=== PATIENT | male | born 1990 | race Caucasian/White ===

== ENCOUNTER 2017-10-27 14:52 | Emergency (ER) | payer SELFPAY ==
[2017-10-27 15:02] VITALS: BP 125/72
--- NOTE | 2017-10-27 15:59 | ER Document Report ---
ED GI/ - General Chief Complaint: Nausea/Vomiting Stated Complaint: VOMITING Time Seen by Provider: 10/27/17 15:55 Mode of Arrival: Ambulatory Information source: Patient Notes: Chief complaint: Vomiting History of complain:( obtained from----patient) 27 years old male yesterday had a feverish feeling and vomited a few times., Went back to work today they needed a note from the doctor. Therefore presented to the ED Currently has no nausea vomiting fever chills or other constitutional symptoms denies any diarrhea dysuria frequency urgency. Onset: As above Duration: Yesterday Severity: Mild Quality: None Context: As above Exacerbating factor and relieving factors: As above REVIEW OF SYSTEMS: CONSTITUTIONAL : Denies fever, chills, or sweats. Denies recent illness. EENT: Denies eye, ear, throat, or mouth pain or symptoms. Denies nasal or sinus congestion or discharge. Denies throat, tongue, or mouth swelling or difficulty swallowing. CARDIOVASCULAR: Denies chest pain. Denies palpitations or racing or irregular heart beat. Denies ankle edema. RESPIRATORY: Denies cough, cold, or chest congestion. Denies shortness of breath, difficulty breathing, or wheezing. GASTROINTESTINAL: Denies distention. Denies nausea, vomiting, or diarrhea. Denies blood in vomitus, stools, or per rectum. Denies black, tarry stools. Denies constipation. GENITOURINARY: Denies difficulty urinating, painful urination, burning, frequency, blood in urine, or discharge. FEMALE GENITOURINARY: Denies vaginal bleeding, heavy or abnormal periods, irregular periods. Denies vaginal discharge or odor. MUSCULOSKELETAL: Denies back or neck pain or stiffness. Denies joint pain or swelling. SKIN: Denies rash, lesions or sores. HEMATOLOGIC : Denies easy bruising or bleeding. LYMPHATIC: Denies swollen, enlarged glands. NEUROLOGICAL: Denies confusion or altered mental status. Denies passing out or loss of consciousness. Denies dizziness or lightheadedness. Denies headache. Denies weakness or paralysis or loss of use of either side. Denies problems with gait or speech. Denies sensory loss, numbness, or tingling. Denies seizures. PSYCHIATRIC: Denies anxiety or stress. Denies depression, suicidal ideation, or homicidal ideation. ALL OTHER SYSTEMS REVIEWED AND NEGATIVE. PHYSICAL EXAMINATION: GENERAL: Well-appearing, well-nourished and in no acute distress. HEAD: Atraumatic, normocephalic. EYES: Pupils equal round and reactive to light, extraocular movements intact, conjunctiva are normal. ENT: Nares patent, oropharynx clear without exudates. Moist mucous membranes. NECK: Normal range of motion, supple without lymphadenopathy LUNGS: Breath sounds clear to auscultation bilaterally and equal. No wheezes rales or rhonchi. HEART: Regular rate and rhythm without murmurs ABDOMEN: Soft, nontender, nondistended abdomen. No guarding, no rebound. No masses appreciated. Examination of genitals-deferred Musculoskeletal: Normal range of motion, no pitting or edema. No cyanosis. NEUROLOGICAL: Cranial nerves grossly intact. Normal speech, normal gait. Normal sensory, motor exams PSYCH: Normal mood, normal affect. SKIN: Warm, Dry, normal turgor, no rashes or lesions noted. Dictation was performed using [employer] voice recognition software TRAVEL OUTSIDE OF THE [place] IN LAST 30 DAYS: No - HPI Notes: 10/27/17 15:57 Dictated - Related Data Allergies/Adverse Reactions: No Known Allergies Allergy (Verified 10/27/17 14:53) Past Medical History - Social History Smoking Status: Current Every Day Smoker Cigarette use (# per day): No Chew tobacco use (# tins/day): No Smoking Education Provided: No Frequency of alcohol use: Rare Drug Abuse: None Lives with: Family Family History: Reviewed & Not Pertinent Patient has suicidal ideation: No Patient has homicidal ideation: No Pulmonary Medical History: Reports: Hx Asthma Renal/ Medical History: Denies: Hx Peritoneal Dialysis GI Medical History: Reports: Hx Gastroesophageal Reflux Disease Psychiatric Medical History: Reports: Hx Attention Deficit Hyperactivity Disorder, Hx Bipolar Disorder, Hx Depression Past Surgical History: Reports: Hx Orthopedic Surgery - right hip, "toes" - Immunizations Immunizations up to date: Yes Hx Diphtheria, Pertussis, Tetanus Vaccination: Yes - 2010 Hx Pneumococcal Vaccination: 03/13/00 Review of Systems - Review of Systems Notes: Dictated Physical Exam - Vital signs Vitals: Temp Pulse Resp BP Pulse Ox 98.8 F 82 16 125/72 97 10/27/17 15:00 10/27/17 15:00 10/27/17 15:00 10/27/17 15:00 10/27/17 15:00 - Notes Notes: Dictated Course - Vital Signs Vital signs: Temp Pulse Resp BP Pulse Ox 98.8 F 82 16 125/72 97 10/27/17 15:00 10/27/17 15:00 10/27/17 15:00 10/27/17 15:00 10/27/17 15:00 Discharge - Discharge Clinical Impression: Viral gastritis Condition: Fair Disposition: HOME, SELF-CARE Instructions: Viral Syndrome ([facility]) Prescriptions: Ondansetron [Zofran Odt 4 mg Tablet] 1 - 2 tab PO Q4H PRN #15 tab.rapdis PRN Reason: For Nausea/Vomiting Forms: Return to Work
== END 2017-10-27 16:02 | disposition home or self-care (01) ==
LOC: ER 14:52
DX: A08.4 Viral intestinal infection, unspecified (principal); R11.2 Nausea with vomiting, unspecified; F17.200 Nicotine dependence, unspecified, uncomplicated; J45.909 Unspecified asthma, uncomplicated
CPT/HCPCS: 99283

== ENCOUNTER 2017-11-14 19:41 | Emergency (ER) | payer SELFPAY ==
--- NOTE | 2017-11-14 20:40 | RADIOLOGY REPORT (SQ) ---
EXAM DESCRIPTION: SHOULDER LEFT 2 OR MORE VIEWS COMPLETED DATE/TIME: 11/14/2017 8:20 pm REASON FOR STUDY: Pain L shoulder-Hit on car door and twisted should COMPARISON: None. NUMBER OF VIEWS: Three views. TECHNIQUE: Internal rotation, external rotation, and Y view images acquired of the left shoulder. LIMITATIONS: None. FINDINGS: MINERALIZATION: Normal. BONES: No acute fracture or dislocation. No worrisome bone lesions. JOINTS: No dislocation. VISUALIZED LUNGS AND RIBS: No pneumothorax. No rib fracture. SOFT TISSUES: No radiopaque foreign body. OTHER: No other significant finding. IMPRESSION: NEGATIVE STUDY OF THE LEFT SHOULDER. NO RADIOGRAPHIC EVIDENCE OF ACUTE INJURY. TECHNICAL DOCUMENTATION: JOB ID: [id number] [employer]- All Rights Reserved Reading location - IP/workstation name: [email or web address]
[2017-11-14] MEDS ORDERED: NAPROXEN 250 MG TABLET PO ONE (22:27)
--- NOTE | 2017-11-14 22:29 | ER Document Report ---
HPI - HPI Patient complains to provider of: Left shoulder injury Pain Level: 3 Context: Patient is a 27-year-old male that comes to the emergency department for chief complaint of left shoulder injury. He states that his left shoulder was struck by an opening car door, the car was not moving. Shoulder was hit around the tip. He reports pain to the area and difficulty moving the shoulder without pain. He denies any other injuries or any other complaints. He states that he has injured the shoulder in the past but he denies ever having surgery on the shoulder or otherwise. - MUSCULOSKELETAL Musculoskeletal: REPORTS: Extremity pain - left shoulder Past Medical History - General Information source: Patient - Social History Smoking Status: Current Every Day Smoker Frequency of alcohol use: Rare Drug Abuse: None Lives with: Family Family History: Reviewed & Not Pertinent Patient has suicidal ideation: No Patient has homicidal ideation: No Pulmonary Medical History: Reports: Hx Asthma Renal/ Medical History: Denies: Hx Peritoneal Dialysis GI Medical History: Reports: Hx Gastroesophageal Reflux Disease Psychiatric Medical History: Reports: Hx Attention Deficit Hyperactivity Disorder, Hx Bipolar Disorder, Hx Depression Past Surgical History: Reports: Hx Orthopedic Surgery - right hip, "toes" - Immunizations Immunizations up to date: Yes Hx Diphtheria, Pertussis, Tetanus Vaccination: Yes - 2010 Hx Pneumococcal Vaccination: 03/13/00 Vertical Provider Document - CONSTITUTIONAL General Appearance: WD/WN - INFECTION CONTROL TRAVEL OUTSIDE OF THE [place] IN LAST 30 DAYS: No - HEENT HEENT: Atraumatic, Normocephalic - NECK Neck: Normal Inspection - RESPIRATORY Respiratory: Breath Sounds Normal, No Respiratory Distress - CARDIOVASCULAR Cardiovascular: Regular Rate, Regular Rhythm - GI/ABDOMEN Gastrointestinal: Abdomen Soft, Abdomen Non-Tender - BACK Back: Normal Inspection - Non-tender back generally on palpation. No midline tenderness, no saddle anesthesia, no signs of trauma. Normal upper and lower extremity range of motion, normal strength, normal distal neurovascular exam. - MUSCULOSKELETAL/EXTREMETIES Musculoskeletal/Extremeties: Tender - Tenderness over the left AC joint, slightly positive speeds test, range of motion intact but slightly painful, no swelling, ecchymosis, erythema, or other abnormality of the upper extremity noted. Normal distal strength, cap refill and sensation. Course - Re-evaluation Re-evalutation: Patient is pacing around and immediately asks if he can leave soon because he needs to go. Shoulder exam does have tenderness at the AC joint without swelling, ecchymosis, erythema, or other concerning abnormality. Painful range of motion but range of motion is still intact. X-ray of the shoulder unremarkable. Suspect AC joint sprain, no other acute findings. Discussed recommendation, provided with sling, discussed use of anti-inflammatories, follow-up with primary care, orthopedics, and return precautions. Patient states understanding and agreement. - Vital Signs Vital signs: Temp Pulse Resp BP Pulse Ox 98.2 F 58 L 92/53 L 98 11/14/17 20:39 11/14/17 20:39 11/14/17 20:39 11/14/17 20:39 Procedures - Immobilization left shoulder Pre-Proc Neuro Vasc Exam: Normal Immobilizer type: Sling Performed by: RN Post-Proc Neuro Vasc Exam: Normal Alignment checked and good: Yes Discharge - Discharge Clinical Impression: Injury of left shoulder Qualifiers: Encounter type: initial encounter Qualified Code(s): S49.92XA - Unspecified injury of left shoulder and upper arm, initial encounter Condition: Stable Disposition: HOME, SELF-CARE Additional Instructions: The x-ray is normal, the injury and exam are most consistent with sprain of the AC joint. Recommendation is to wear the sling for comfort, take the naproxen anti-inflammatory, apply ice 3-4 times a day for 10-15 minutes. Symptoms should resolve with time. If symptoms of pain persist follow-up with orthopedic referral in 5-7 days. Remember to take your arm out of the sling frequently to perform range of motion to avoid freezing of the shoulder. Return for any concerning symptoms including severe pain, redness, swelling, etc. Prescriptions: Naproxen 500 mg PO BID #20 tablet Forms: Return to Work Referrals: ADRIANE BENSON MD [ACTIVE STAFF] - Follow up in 1 week
[2017-11-14 22:31] VITALS: BP 135/70
== END 2017-11-14 22:41 | disposition home or self-care (01) ==
LOC: ER 19:41
DX: S49.92XA Unspecified injury of left shoulder and upper arm, initial encounter (principal); W20.8XXA Other cause of strike by thrown, projected or falling object, initial encounter; J45.909 Unspecified asthma, uncomplicated; F17.200 Nicotine dependence, unspecified, uncomplicated
CPT/HCPCS: 99283

== ENCOUNTER 2018-01-15 20:10 | Emergency (ER) | payer SELFPAY ==
[2018-01-15 20:26] VITALS: BP 129/70
--- NOTE | 2018-01-15 20:57 | ER Document Report ---
ED General - General Chief Complaint: Arm Pain Stated Complaint: LEFT ARM AND RIGHT LEG NUMBNESS Time Seen by Provider: 01/15/18 20:42 Notes: Patient is a 27-year-old male presenting to the emergency department complaining of intermittent left arm and right leg weakness. Patient states for the last 2 days his left arm and right leg have been intermittently weak and had pins and needles feeling in them. Patient denies any association with sleeping, lifting, moving, or exercising. Patient states at times he also has a sharp "all over" headache when this numbness and tingling happens. Patient is currently denying any complaints states he does not have a primary care doctor and because this numbness and tingling has been happening for the last 2 days he decided to come to the emergency room for evaluation. Patient is currently denying headache, numbness, weakness, tingling, chest pain , shortness of breath, nausea, vomiting, diarrhea, abdominal pain, urinary retention, loss of bowel or bladder. Past medical history: None medications: None Allergies: None Surgical history: Cleft lip and cleft palate Patient admits to cigarette smoking, denies illicit drug use, denies EtOH use. TRAVEL OUTSIDE OF THE [place] IN LAST 30 DAYS: No - Related Data Allergies/Adverse Reactions: No Known Allergies Allergy (Verified 11/14/17 22:13) Past Medical History - General Information source: Patient - Social History Smoking Status: Current Every Day Smoker Lives with: Family Family History: Reviewed & Not Pertinent Patient has suicidal ideation: No Patient has homicidal ideation: No Pulmonary Medical History: Reports: Hx Asthma Renal/ Medical History: Denies: Hx Peritoneal Dialysis GI Medical History: Reports: Hx Gastroesophageal Reflux Disease Psychiatric Medical History: Reports: Hx Attention Deficit Hyperactivity Disorder, Hx Bipolar Disorder, Hx Depression Past Surgical History: Reports: Hx Orthopedic Surgery - right hip, "toes" - Immunizations Immunizations up to date: Yes Hx Diphtheria, Pertussis, Tetanus Vaccination: Yes - 2010 Hx Pneumococcal Vaccination: 03/13/00 Review of Systems - Review of Systems Constitutional: See HPI EENT: See HPI Cardiovascular: See HPI Respiratory: See HPI Gastrointestinal: See HPI Genitourinary: See HPI Male Genitourinary: See HPI Physical Exam - Vital signs Vitals: Temp Pulse Resp BP Pulse Ox 98 F 47 L 18 129/70 H 97 01/15/18 20:11 01/15/18 20:11 01/15/18 20:11 01/15/18 20:11 01/15/18 20:11 Course - Vital Signs Vital signs: Temp Pulse Resp BP Pulse Ox 98 F 47 L 18 129/70 H 97 01/15/18 20:11 01/15/18 20:11 01/15/18 20:11 01/15/18 20:11 01/15/18 20:11 - Laboratory Result Diagrams: 01/15/18 20:50 01/15/18 20:50 Laboratory results interpreted by me: 01/15/18 20:50 Plt Count 118 L Discharge - Discharge Disposition: [facility] [place]
[2018-01-15 21:09] LABS: ABSOLUTE BASOPHILS # (AUTO) 0.1 10^3/uL (0.0-0.2); ABSOLUTE EOSINOPHILS # (AUTO) 0.1 10^3/uL (0.0-0.6); ABSOLUTE LYMPHOCYTES (AUTO) 2.8 10^3/uL (0.5-4.7); ABSOLUTE MONOCYTES (AUTO) 0.8 10^3/uL (0.1-1.4); ABSOLUTE NEUT (AUTO) 4.5 10^3/uL (1.7-8.2); BASOPHILS % (AUTO) 1.2 % (0-2); EOSINOPHILS % (AUTO) 1.4 % (0-6); HEMATOCRIT 43.8 % (37.9-51.0); HEMOGLOBIN 15.7 g/dL (13.5-17.0); LYMPHOCYTES % (AUTO) 33.5 % (13-45); MEAN CORPUSCULAR HEMOGLOBIN 31.1 pg (27.0-33.4); MEAN CORPUSCULAR HGB CONC 35.9 g/dL (32.0-36.0); MEAN CORPUSCULAR VOLUME 87 fl (80-97); MONOCYTES % (AUTO) 9.3 % (3-13); PLATELET COUNT 118 10^3/uL (150-450); RED BLOOD COUNT 5.06 10^6/uL (4.35-5.55); RED CELL DISTRIBUTION WIDTH 12.5 % (11.5-14.0); SEGMENTED NEUTROPHILS % (AUTO) 54.6 % (42-78); TOTAL CELLS COUNTED % (AUTO) 100 %; WHITE BLOOD COUNT 8.3 10^3/uL (4.0-10.5)
[2018-01-15 21:22] LABS: ALANINE AMINOTRANSFERASE 25 U/L (21-72); ALBUMIN 4.5 g/dL (3.5-5.0); ALKALINE PHOSPHATASE 70 U/L (38-126); ANION GAP 13 (5-19); ASPARTATE AMINO TRANSFERASE 23 U/L (17-59); BILIRUBIN,DIRECT 0.1 mg/dL (0.0-0.4); BILIRUBIN,TOTAL 0.4 mg/dL (0.2-1.3); BLOOD UREA NITROGEN 15 mg/dL (7-20); CALCIUM 9.8 mg/dL (8.4-10.2); CARBON DIOXIDE 24 mmol/L (22-30); CHLORIDE 104 mmol/L (98-107); GLUCOSE 90 mg/dL (75-110); POTASSIUM 4.4 mmol/L (3.6-5.0); SODIUM 141.3 mmol/L (137-145); TOTAL PROTEIN 6.9 g/dL (6.3-8.2)
[2018-01-15 21:26] LABS: URINE AMPHETAMINES SCREEN NEGATIVE; URINE BARBITURATES SCREEN NEGATIVE; URINE BENZODIAZEPINES SCREEN NEGATIVE; URINE COCAINE SCREEN NEGATIVE; URINE MARIJUANA (THC) SCREEN UNCONFIRMED POSITIVE; URINE METHADONE SCREEN NEGATIVE; URINE PHENCYCLIDINE SCREEN NEGATIVE
== END 2018-01-15 22:25 | disposition left against medical advice (07) ==
LOC: ER 20:10
DX: Z53.21 Procedure and treatment not carried out due to patient leaving prior to being seen by health care provider (principal); M79.602 Pain in left arm; R20.0 Anesthesia of skin; M62.81 Muscle weakness (generalized); F17.210 Nicotine dependence, cigarettes, uncomplicated; J45.909 Unspecified asthma, uncomplicated
CPT/HCPCS: 36415; 80053; 80307; 85025; 99281

== ENCOUNTER 2018-03-27 08:18 | Emergency (ER) | payer SELFPAY ==
[2018-03-27 09:28] LABS: APPEARANCE,URINE CLEAR; BILIRUBIN,URINE NEGATIVE (NEGATIVE); COLOR,URINE STRAW; GLUCOSE, URINE NEGATIVE (NEGATIVE); KETONES,URINE NEGATIVE (NEGATIVE); LEUKOCYTE ESTERASE,URINE NEGATIVE (NEGATIVE); NITRITE,URINE NEGATIVE (NEGATIVE); PROTEIN,URINE NEGATIVE (NEGATIVE); URINE SPECIFIC GRAVITY 1.009; UROBILINOGEN,URINE NEGATIVE mg/dL (<2.0)
[2018-03-27] MEDS ORDERED: IPRATROPIUM/ALBUTEROL 0.5-2.5 MG/3 ML AMPUL NEB ONE (09:30)
[2018-03-27] MEDS ORDERED: ONDANSETRON 4 MG TAB.RAPDIS PO ONE (09:30)
[2018-03-27] MEDS ORDERED: PREDNISONE 20 MG TABLET PO ONE (09:30)
--- NOTE | 2018-03-27 09:33 | ER Document Report ---
ED General - General Chief Complaint: Nausea/Vomiting/Diarrhea Stated Complaint: VOMITING Time Seen by Provider: 03/27/18 09:08 Mode of Arrival: Ambulatory Information source: Patient Notes: Patient is a 27-year-old male who presents with chief complaint of cough, congestion, body aches, headache, sore throat, vomiting, diarrhea and wheezing. Patient reports past medical history of asthma. States his illness started yesterday. Patient reports he is able to hold down fluids but vomits after he eats. Patient denies any abdominal pain. Patient denies taking any medications prior to arrival to help with his symptoms. TRAVEL OUTSIDE OF THE [place] IN LAST 30 DAYS: No - Related Data Allergies/Adverse Reactions: No Known Allergies Allergy (Verified 03/27/18 08:18) Past Medical History - Social History Smoking Status: Current Every Day Smoker Family History: Reviewed & Not Pertinent Patient has suicidal ideation: No Patient has homicidal ideation: No Pulmonary Medical History: Reports: Hx Asthma Renal/ Medical History: Denies: Hx Peritoneal Dialysis GI Medical History: Reports: Hx Gastroesophageal Reflux Disease Psychiatric Medical History: Reports: Hx Attention Deficit Hyperactivity Disorder, Hx Bipolar Disorder, Hx Depression Past Surgical History: Reports: Hx Oral Surgery - cleft lip, Hx Orthopedic Surgery - right hip, "toes" - Immunizations Immunizations up to date: Yes Hx Diphtheria, Pertussis, Tetanus Vaccination: Yes - 2010 Hx Pneumococcal Vaccination: 03/13/00 Physical Exam - Vital signs Vitals: Temp Pulse Resp BP Pulse Ox 98.9 F 84 20 129/67 H 98 03/27/18 08:29 03/27/18 08:29 03/27/18 08:29 03/27/18 08:29 03/27/18 08:29 - Notes Notes: PHYSICAL EXAMINATION: GENERAL: Well-appearing, well-nourished and in no acute distress. HEAD: Atraumatic, normocephalic. EYES: Pupils equal round and reactive to light, extraocular movements intact, sclera anicteric, conjunctiva are normal. ENT: Nares patent with clear rhinorrhea, oropharynx mildly erythematous without exudates. Moist mucous membranes. NECK: Normal range of motion, supple without lymphadenopathy LUNGS: Breath sounds clear to auscultation bilaterally and equal. Expiratory wheezing noted bilaterally. HEART: Regular rate and rhythm without murmurs ABDOMEN: Soft, nontender, nondistended abdomen. No guarding, no rebound. No masses appreciated. Musculoskeletal: Normal range of motion, no pitting or edema. No cyanosis. NEUROLOGICAL: Cranial nerves grossly intact. Normal speech, normal gait. Normal sensory, motor exams PSYCH: Normal mood, normal affect. SKIN: Warm, Dry, normal turgor, no rashes or lesions noted. Course - Re-evaluation Re-evalutation: 03/27/18 10:36 CBC and CMP are unremarkable. Rapid strep and influenza are negative. Patient's breath sounds have improved significantly after breathing treatments. Plan to discharge patient home with albuterol inhaler and course of prednisone. - Vital Signs Vital signs: Temp Pulse Resp BP Pulse Ox 98.9 F 84 20 129/67 H 98 03/27/18 08:29 03/27/18 08:29 03/27/18 08:29 03/27/18 08:29 03/27/18 08:29 - Laboratory Result Diagrams: 03/27/18 09:15 03/27/18 09:15 Laboratory results interpreted by me: 03/27/18 09:15 Plt Count 113 L Discharge - Discharge Clinical Impression: Asthma exacerbation Qualifiers: Asthma severity: moderate Asthma persistence: unspecified Qualified Code(s): J45.901 - Unspecified asthma with (acute) exacerbation Nausea and vomiting Qualifiers: Vomiting type: unspecified Vomiting Intractability: unspecified Qualified Code(s): R11.2 - Nausea with vomiting, unspecified Condition: Stable Disposition: HOME, SELF-CARE Additional Instructions: Asthma You have been diagnosed as having asthma. This is a condition where there is episodic tightness in the bronchial tubes. Allergies, infections, and polluted or cold air may be contributing factors. Emergency treatment of a severe asthma attack may include adrenaline shots, or bronchodilator aerosol. You may feel lightheaded, have a decreased exercise tolerance and a rapid pulse for an hour or two. Rest and get plenty of fluids. Home treatment of asthma requires bronchodilator drugs. These can be administered by injection, inhalation, or by mouth. Antibiotics and corticosteroids may be required for some patients. You should avoid chemical fumes, dusts, pollens, and exercising in very cold or dry air. If you smoke, stop!! If you develop a fever, increased wheezing, chest pain, or severe shortness of breath, you should contact the doctor immediately Nausea or Vomiting, Nonspecific Vomiting (or nausea without vomiting) can be caused by many different problems. Of course, it can mean that something's wrong with the stomach, such as "stomach flu," ulcers, or inflammation. But it can also be a symptom of a pr oblem that has nothing to do with the stomach or intestines. Vomiting is common with severe headaches, earaches, and tonsillitis. We see it with pneumonia or heart attacks. Drugs can cause nausea. Many abdominal problems cause vomiting; for example, gallstones, kidney stones, pancreatitis, and intestinal obstruction (blocked bowels). In most cases, curing the vomiting depends on fixing the problem that caused it. For temporary relief, we may use an anti-nausea medicine. For home use, we can prescribe suppositories, chewable pills, pills that dissolve in the mouth, or liquid anti-nausea drugs. If the vomiting seems to be caused by a problem in the stomach, acid-suppressing drugs may be prescribed as well. It's important to avoid dehydration. Sip clear liquids. Take increasing amounts of fluid over the first 24 hours. Then start small amounts of bland foods (such as dry toast, applesauce, mashed potato). Avoid aspirin, tobacco, and alcohol. Gradually resume your usual diet. If the vomiting worsens, if the problem that's making you vomit worsens, or if there's evidence of bleeding in the stomach (such as black, tarry stool, bloody or black vomit, or lightheadedness), you should return immediately. Call your doctor if you aren't improved in 24 to 36 hours. Your workup today was unremarkable. Your symptoms are likely being caused by a viral illness as well as an asthma exacerbation. Please eat a bland diet over the next several days, use the Zofran as needed for nausea. Start taking the prednisone tomorrow as you have already been given your first dose today. Use the albuterol inhaler as needed for wheezing or shortness of breath, you may take 2 puffs every 4 hours. Prescriptions: Ondansetron [Zofran Odt 4 mg Tablet] 1 - 2 tab PO Q4H PRN #15 tab.rapdis PRN Reason: For Nausea/Vomiting Prednisone [Deltasone 20 mg Tablet] 3 tab PO DAILY 4 Days #12 tablet Forms: Return to Work
[2018-03-27 09:37] LABS: ABSOLUTE BASOPHILS # (AUTO) 0.1 10^3/uL (0.0-0.2); ABSOLUTE EOSINOPHILS # (AUTO) 0.1 10^3/uL (0.0-0.6); ABSOLUTE LYMPHOCYTES (AUTO) 1.1 10^3/uL (0.5-4.7); ABSOLUTE MONOCYTES (AUTO) 0.6 10^3/uL (0.1-1.4); ABSOLUTE NEUT (AUTO) 3.4 10^3/uL (1.7-8.2); EOSINOPHILS % (AUTO) 2.7 % (0-6); HEMATOCRIT 46.3 % (37.9-51.0); HEMOGLOBIN 16.2 g/dL (13.5-17.0); LYMPHOCYTES % (AUTO) 21.2 % (13-45); MEAN CORPUSCULAR HEMOGLOBIN 30.2 pg (27.0-33.4); MEAN CORPUSCULAR VOLUME 86 fl (80-97); MONOCYTES % (AUTO) 11.8 % (3-13); PLATELET COUNT 113 10^3/uL (150-450); RED BLOOD COUNT 5.37 10^6/uL (4.35-5.55); RED CELL DISTRIBUTION WIDTH 12.8 % (11.5-14.0); SEGMENTED NEUTROPHILS % (AUTO) 63.3 % (42-78); TOTAL CELLS COUNTED % (AUTO) 100 %; WHITE BLOOD COUNT 5.4 10^3/uL (4.0-10.5)
[2018-03-27 10:23] LABS: ALANINE AMINOTRANSFERASE 32 U/L (21-72); ALBUMIN 4.4 g/dL (3.5-5.0); ALKALINE PHOSPHATASE 71 U/L (38-126); ANION GAP 9 (5-19); ASPARTATE AMINO TRANSFERASE 20 U/L (17-59); BILIRUBIN,DIRECT 0.2 mg/dL (0.0-0.4); BILIRUBIN,TOTAL 0.5 mg/dL (0.2-1.3); BLOOD UREA NITROGEN 11 mg/dL (7-20); CALCIUM 9.4 mg/dL (8.4-10.2); CARBON DIOXIDE 26 mmol/L (22-30); CHLORIDE 107 mmol/L (98-107); GLUCOSE 81 mg/dL (75-110); POTASSIUM 4.2 mmol/L (3.6-5.0); SODIUM 142.1 mmol/L (137-145); TOTAL PROTEIN 6.5 g/dL (6.3-8.2)
[2018-03-27 10:24] LABS: A TYPE INFLUENZA AG NEGATIVE (NEGATIVE); B INFLUENZA AG NEGATIVE (NEGATIVE)
[2018-03-27] MEDS ORDERED: ALBUTEROL SULFATE HFA (90 MCG/PUFF) 8 GM MDI (1 MDI/ER DISP) IH ONE (10:35)
[2018-03-27 11:04] VITALS: BP 128/73
== END 2018-03-27 11:00 | disposition home or self-care (01) ==
LOC: ER 08:18
DX: J45.901 Unspecified asthma with (acute) exacerbation (principal); R11.2 Nausea with vomiting, unspecified; R05 Cough; R51 Headache; J02.9 Acute pharyngitis, unspecified; J34.89 Other specified disorders of nose and nasal sinuses; F17.200 Nicotine dependence, unspecified, uncomplicated; Z87.19 Personal history of other diseases of the digestive system
CPT/HCPCS: 94640; 99284; 36415; 87070; 87880; 85025; 80053; 81001; 87804; S0119; J7512; J3490; J7620

== ENCOUNTER 2018-04-11 10:27 | Emergency (ER) | payer SELFPAY ==
[2018-04-11 10:50] VITALS: BP 115/76
--- NOTE | 2018-04-11 11:05 | ER Document Report ---
Addendum entered and electronically signed by ADRIANE JONES PA-C 04/11/18 11:05: Discharge - Discharge Clinical Impression: Acute URI, Wheezing Abdominal pain Qualifiers: Abdominal location: right lower quadrant Qualified Code(s): R10.31 - Right lower quadrant pain Condition: Stable Disposition: AGAINST MEDICAL ADVICE Instructions: Abdominal Pain ([facility]), Observation for Appendicitis ([facility]) Additional Instructions: As reviewed, you are electing to sign out AGAINST MEDICAL ADVICE for further evaluation for possible appendicitis. You need to monitor symptoms very closely for any worsening pain, fever, or other concerning symptoms. You should have a reevaluation within 24 hours by a provider and/or the emergency department. Risk of not doing so could include severe infection and/or if this is truly an appendicitis. Maintain adequate fluid intake Take meds as directed tylenol/ibuprofen as needed over the counter cold medication as needed for symptoms Humidified air may help Wash your hands regularly Wear a mask when coughing F/u: with your PCM in 1 day for a recheck Return to the ED with any fever, worsening pain, chest pain, palpitations, syncope, worsening JIM, neck pain/stiffness, shortness of breath, wheezing, drooling, trouble swallowing/breathing, abdominal pain, n/v/d, rash, or worsening/concerning symptoms otherwise. Prescriptions: Albuterol Sulfate [Proair HFA Inhalation Aerosol 8.5 gm MDI] 2 puff IH Q4H PRN #1 mdi PRN Reason: Ondansetron [Zofran Odt 4 mg Tablet] 1 - 2 tab PO Q4H PRN #15 tab.rapdis PRN Reason: For Nausea/Vomiting Forms: Smoking Cessation Education Referrals: ALEX ENCISO MD [ACTIVE STAFF] - Follow up as needed Original Note: HPI - HPI Time Seen by Provider: 04/11/18 10:52 Pain Level: 2 Notes: Patient is a 27-year-old male with history of asthma who presents to the emergency department complaining of nausea, vomiting, and intermittent abdominal pain across his lower abdomen over the last 1-2 days. Patient states that he does have an occasional cough and nasal congestion with some wheezing, but is presenting because of the intermittent nausea/vomiting/abdominal pain. Patient states that he does not have consistent nausea and the pain is primarily when he vomits. Patient points to his right lower quadrant as the area of most pain. He does still have his appendix. Denies drug allergies. No other concerns or complaints. Last bowel movement was 1-2 days ago. He is urinating normally. Denies any headache, fever, neck pain, sore throat, chest pain, palpitations, syncope, shortness of breath, wheeze, dyspnea, abdominal pain, diarrhea, urinary retention, dysuria, hematuria, back pain, loss of control of bowel or bladder, numbness/tingling, saddle anesthesia, muscle paralysis/weakness, or rash. - ROS Systems Reviewed and Negative: Yes All other systems reviewed and negative Past Medical History - Social History Smoking Status: Current Every Day Smoker Family History: Reviewed & Not Pertinent Pulmonary Medical History: Reports: Hx Asthma Renal/ Medical History: Denies: Hx Peritoneal Dialysis GI Medical History: Reports: Hx Gastroesophageal Reflux Disease Psychiatric Medical History: Reports: Hx Attention Deficit Hyperactivity Disorder, Hx Bipolar Disorder, Hx Depression Past Surgical History: Reports: Hx Oral Surgery - cleft lip, Hx Orthopedic Surgery - right hip, "toes" - Immunizations Immunizations up to date: Yes Hx Diphtheria, Pertussis, Tetanus Vaccination: Yes - 2010 Hx Pneumococcal Vaccination: 03/13/00 Vertical Provider Document - CONSTITUTIONAL Agree With Documented VS: Yes Notes: PHYSICAL EXAMINATION: GENERAL: Well-appearing, well-nourished and in no acute distress. HEAD: Atraumatic, normocephalic. EYES: Pupils equal round and reactive to light, extraocular movements intact, sclera anicteric, conjunctiva are normal. ENT: EAC clear b/l. TM's intact b/l without erythema, fluid, or perforation. Nares patent and without discharge. oropharynx clear without exudates. No tonsilar hypertrophy or erythema. Moist mucous membranes. No sinus tenderness. NECK: Normal range of motion, supple without lymphadenopathy LUNGS: Scant wheeze b/l. No retractions HEART: Regular rate and rhythm without murmurs, rubs, gallops. ABDOMEN: Soft, nondistended abdomen. No guarding, no rebound. No masses appreciated. Normal bowel sounds present. No CVA tenderness bilaterally. + mild tenderness to the RLQ. Heel strike, obturator, psoas negative. Musculoskeletal: FROM to passive/active. Strength 5+/5. Extremities: No cyanosis, clubbing, or edema b/l. Peripheral pulses 2+. Capillary refill less than 3 seconds. NEUROLOGICAL: Normal speech, normal gait. Normal sensory, motor exams PSYCH: Normal mood, normal affect. SKIN: Warm, Dry, normal turgor, no rashes or lesions noted. - INFECTION CONTROL TRAVEL OUTSIDE OF THE [place] IN LAST 30 DAYS: No Course - Re-evaluation Re-evalutation: 04/11/18 11:01 Patient is an afebrile, well-hydrated, 27-year-old male who presents emergency department with an acute URI, nausea, abdominal pain, vomiting. I do suspect that his illness is viral, but patient does have point tenderness to his right lower quadrant. Vitals are otherwise acceptable. I thoroughly evaluated the right lower quadrant patient, and patient describes feeling sharp pain when I am pushing in the right lower quadrant near [place]Burney point. I reviewed with the patient that I would like to obtain labs as well as a CT scan to further evaluate for an appendicitis. Patient states that he does not want any workup and does not want to miss any work. Patient states that he currently does not feel pain at rest and does not have any nausea or vomiting. He is still able to drink and eat without difficulty at this time. Patient would like to sign out AMA. Risk and benefit thoroughly reviewed including strict return precautions if any worsening symptoms as a ruptured appendicitis can result in and severe infection. Patient has verbalized understanding of this. I will sent home with a prescription for Zofran and an inhaler. Recheck preferably within 24 hours for reevaluation. Return to the ED with any other worsening/concerning symptoms. Patient is in agreement. - Vital Signs Vital signs: Temp Pulse Resp BP Pulse Ox 98.4 F 64 16 115/76 97 04/11/18 10:47 04/11/18 10:47 04/11/18 10:47 04/11/18 10:47 04/11/18 10:47 Discharge - Discharge Clinical Impression: Acute URI, Wheezing Abdominal pain Qualifiers: Abdominal location: right lower quadrant Qualified Code(s): R10.31 - Right lower quadrant pain Condition: Stable Disposition: HOME, SELF-CARE Instructions: Observation for Appendicitis ([facility]), Abdominal Pain ([facility]) Additional Instructions: As reviewed, you are electing to sign out AGAINST MEDICAL ADVICE for further evaluation for possible appendicitis. You need to monitor symptoms very closely for any worsening pain, fever, or other concerning symptoms. You should have a reevaluation within 24 hours by a provider and/or the emergency department. Risk of not doing so could include severe infection and/or if this is truly an appendicitis. Maintain adequate fluid intake Take meds as directed tylenol/ibuprofen as needed over the counter cold medication as needed for symptoms Humidified air may help Wash your hands regularly Wear a mask when coughing F/u: with your PCM in 1 day for a recheck Return to the ED with any fever, worsening pain, chest pain, palpitations, syncope, worsening JIM, neck pain/stiffness, shortness of breath, wheezing, drooling, trouble swallowing/breathing, abdominal pain, n/v/d, rash, or worsening/concerning symptoms otherwise. Prescriptions: Albuterol Sulfate [Proair HFA Inhalation Aerosol 8.5 gm MDI] 2 puff IH Q4H PRN #1 mdi PRN Reason: Ondansetron [Zofran Odt 4 mg Tablet] 1 - 2 tab PO Q4H PRN #15 tab.rapdis PRN Reason: For Nausea/Vomiting Forms: Smoking Cessation Education Referrals: ALEX ENCISO MD [ACTIVE STAFF] - Follow up as needed
== END 2018-04-11 11:12 | disposition left against medical advice (07) ==
LOC: ER 10:27
DX: R10.31 Right lower quadrant pain (principal); R10.813 Right lower quadrant abdominal tenderness; J06.9 Acute upper respiratory infection, unspecified; J45.909 Unspecified asthma, uncomplicated; R11.2 Nausea with vomiting, unspecified; R05 Cough; R09.81 Nasal congestion; F17.200 Nicotine dependence, unspecified, uncomplicated
CPT/HCPCS: 99284

== ENCOUNTER 2018-05-23 22:27 | Emergency (ER) | payer SELFPAY ==
--- NOTE | 2018-05-23 22:39 | ER Document Report ---
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 hs of severe eczema I have greeted and performed a rapid initial assessment of this patient. A comprehensive ED assessment and evaluation of the patient, analysis of test results and completion of the medical decision making process will be conducted by additional ED providers. TRAVEL OUTSIDE OF THE [place] IN LAST 30 DAYS: No - Related Data Allergies/Adverse Reactions: No Known Allergies Allergy (Verified 03/27/18 08:18) Past Medical History Pulmonary Medical History: Reports: Hx Asthma Renal/ Medical History: Denies: Hx Peritoneal Dialysis GI Medical History: Reports: Hx Gastroesophageal Reflux Disease Psychiatric Medical History: Reports: Hx Attention Deficit Hyperactivity Disorde r, Hx Bipolar Disorder, Hx Depression Past Surgical History: Reports: Hx Oral Surgery - cleft lip, Hx Orthopedic Surgery - right hip, "toes" - Immunizations Immunizations up to date: Yes Hx Diphtheria, Pertussis, Tetanus Vaccination: Yes - 2010 Physical Exam - Vital signs Vitals: Temp Pulse Resp BP Pulse Ox 98.1 F 57 L 16 125/60 98 05/23/18 22:37 05/23/18 22:37 05/23/18 22:37 05/23/18 22:37 05/23/18 22:37 Course - Vital Signs Vital signs: Temp Pulse Resp BP Pulse Ox 98.1 F 57 L 16 125/60 98 05/23/18 22:37 05/23/18 22:37 05/23/18 22:37 05/23/18 22:37 05/23/18 22:37
[2018-05-24] MEDS ORDERED: DEXAMETHASONE 4 MG TABLET PO ONE (06:26)
--- NOTE | 2018-05-24 06:32 | ER Document Report ---
ED General - General Chief Complaint: Facial Swelling Stated Complaint: FACIAL SWELLING/BURNING Time Seen by Provider: 05/23/18 22:38 Mode of Arrival: Ambulatory TRAVEL OUTSIDE OF THE [place] IN LAST 30 DAYS: No - HPI Patient complains to provider of: Facial swelling burning of the face Notes: Patient coming in for facial swelling burning of the face ongoing for the last 24 hours. 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 Patient states that in the last 24 hours patient has become very itchy and swollen and red. Patient does have red chalk on his shoes and on his pants leg. Patient states the use the chart of the marked lines on the roof however this is an everyday occurrence does not believe any chemicals were blown into his face or spread onto his face. Patient states he does have increased exposure to sun. Patient otherwise denies any other medical issues. - Related Data Allergies/Adverse Reactions: No Known Allergies Allergy (Verified 03/27/18 08:18) Past Medical History - General Information source: Patient - Social History Smoking Status: Unknown if Ever Smoked Family History: Reviewed & Not Pertinent Pulmonary Medical History: Reports: Hx Asthma Renal/ Medical History: Denies: Hx Peritoneal Dialysis GI Medical History: Reports: Hx Gastroesophageal Reflux Disease Psychiatric Medical History: Reports: Hx Attention Deficit Hyperactivity Disorder, Hx Bipolar Disorder, Hx Depression Past Surgical History: Reports: Hx Oral Surgery - cleft lip, Hx Orthopedic Surgery - right hip, "toes" - Immunizations Immunizations up to date: Yes Hx Diphtheria, Pertussis, Tetanus Vaccination: Yes - 2010 Hx Pneumococcal Vaccination: 03/13/00 Review of Systems - Review of Systems Constitutional: No symptoms reported EENT: No symptoms reported Cardiovascular: No symptoms reported Respiratory: No symptoms reported Gastrointestinal: No symptoms reported Genitourinary: No symptoms reported Male Genitourinary: No symptoms reported Musculoskeletal: Other - Swelling of the face redness of the face Skin: No symptoms reported Hematologic/Lymphatic: No symptoms reported Neurological/Psychological: No symptoms reported Physical Exam - Vital signs Vitals: Temp Pulse Resp BP Pulse Ox 98.1 F 57 L 16 125/60 98 05/23/18 22:37 05/23/18 22:37 05/23/18 22:37 05/23/18 22:37 05/23/18 22:37 Interpretation: Normal - General General appearance: Appears well, Alert - HEENT Head: Normocephalic, Other - Patient has generalized redness with dry scaly skin bilateral zygomatic arches going up the nasal fold. Looks more consistent with a dermatitis Eyes: Normal Pupils: PERRL - Respiratory Respiratory status: No respiratory distress Chest status: Nontender Breath sounds: Normal Chest palpation: Normal - Cardiovascular Rhythm: Regular Heart sounds: Normal auscultation Murmur: No - Abdominal Inspection: Normal Distension: No distension Bowel sounds: Normal Tenderness: Nontender Organomegaly: No organomegaly - Back Back: Normal, Nontender - Extremities General upper extremity: Normal inspection, Nontender, Normal color, Normal ROM, Normal temperature General lower extremity: Normal inspection, Nontender, Normal color, Normal ROM, Normal temperature, Normal weight bearing. No: Jyoti's sign - Neurological Neuro grossly intact: Yes Cognition: Normal Orientation: AAOx4 [place] Coma Scale Eye Opening: Spontaneous [place] Coma Scale Verbal: Oriented Yonny Coma Scale Motor: Obeys Commands Yonny Coma Scale Total: 15 Speech: Normal Motor strength normal: LUE, RUE, LLE, RLE Sensory: Normal - Psychological Associated symptoms: Normal affect, Normal mood - Skin Skin Temperature: Warm Skin Moisture: Dry Skin Color: Normal Course - Re-evaluation Re-evalutation: 05/24/18 12:36 Patient was to have dermatitis exacerbation of his eczema. Was given a steroid and a prescription for eczema cream. Patient will be discharged home follow-up primary care physician. - Vital Signs Vital signs: Temp Pulse Resp BP Pulse Ox 98.0 F 52 L 14 118/64 99 05/24/18 06:34 05/24/18 06:34 05/24/18 06:34 05/24/18 06:34 05/24/18 06:34 Discharge - Discharge Clinical Impression: Facial dermatitis Disposition: HOME, SELF-CARE Instructions: [facility] ([facility]) [facility] Additional Instructions: Your physical evaluation today is consistent with a dermatitis or irritation of the skin is could be due to underlying eczema. We will give you a dose of steroids would recommend placing the prescribed cream on her face aid with relief. Return to ER symptoms worsen follow-up with your primary care physician. Prescriptions: Calamine/Pramoxine/Oatmeal [Aveeno Anti-Itch Cream] 1 applic TP DAILY PRN #1 pkg PRN Reason: Forms: Return to Work
[2018-05-24 06:38] VITALS: BP 118/64
== END 2018-05-24 06:48 | disposition home or self-care (01) ==
LOC: ER 22:27
DX: L30.9 Dermatitis, unspecified (principal); J45.909 Unspecified asthma, uncomplicated
CPT/HCPCS: 99282

== ENCOUNTER 2018-08-01 02:43 | Emergency (ER) | payer SELFPAY ==
[2018-08-01] MEDS ORDERED: IPRATROPIUM/ALBUTEROL 0.5-2.5 MG/3 ML AMPUL NEB ONE (03:44)
[2018-08-01] MEDS ORDERED: PREDNISONE 20 MG TABLET PO ONE (03:44)
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
[2018-08-01] MEDS ORDERED: ALBUTEROL SULFATE HFA (90 MCG/PUFF) 8 GM MDI (1 MDI/ER DISP) IH ONE (04:59)
[2018-08-01 05:21] VITALS: BP 127/62
== END 2018-08-01 05:26 | disposition home or self-care (01) ==
LOC: ER 02:43
DX: R07.81 Pleurodynia (principal); V49.9XXA Car occupant (driver) (passenger) injured in unspecified traffic accident, initial encounter; J45.909 Unspecified asthma, uncomplicated; T48.6X6A Underdosing of antiasthmatics, initial encounter; Z91.128 Patient's intentional underdosing of medication regimen for other reason; Z91.14 Patient's other noncompliance with medication regimen; F17.200 Nicotine dependence, unspecified, uncomplicated; Q35.9 Cleft palate, unspecified
CPT/HCPCS: 94640; 99285; 71101; J7512; J3490; J7620